=== PATIENT | female | born 1990 | race Caucasian/White ===

== ENCOUNTER 2020-09-03 13:32 | Outpatient (CLI) | payer OTHER ==
--- NOTE | 2020-09-03 16:58 | Ultrasound Report ---
PROCEDURE: OB F/U or Repeat INDICATIONS: F U FAS , SCREENING OUTSIDE/PRIOR DATING DATA: Last menstrual period (LMP): 04/16/2020. LMP-based estimated date of delivery (ZAHIRA): 01/21/2021. First dating scan (date and location): Outside dating scan dated 08/09/2020 is not available for gloria giraldo. Estimated date of delivery (ZAHIRA) from first dating scan: 01/21/2021 based off reported last menstrual p eriod date of 04/16/2020. TECHNIQUE: Real-time scanning was performed of the fetus, with image documentation and biometric measurements. Endovaginal scanning: not performed COMPARISON: Outside examination dated 08/09/2020 is not available for review at time of this study. FINDINGS: General: A single living intrauterine gestation is present. Presentation: Transverse/variable Placenta: Placental position is lateral right, without previa. Amniotic fluid index: 16.4 cm, 70th percentile for gestational age. Largest pocket measures 5.3 cm. heart rate: 153 beats per minute. Maternal cervical canal: 4.8 cm long; normal length is 2.5 cm or more. Maternal ovaries: Within normal limits. biometrics: Biparietal diameter: 4.8 cm, correlating with 20 weeks and 3 days Head circumference: 17.5 cm, correlating with 20 weeks and 0 days Abdominal circumference: 14.7 cm, correlating with 20 weeks and 0 days Femur length: 2.9 cm, correlating with 18 weeks and 6 days Estimated gestational age from initial scan: not applicable. Composite gestational age from present scan: 19 weeks and 6 days Estimated weight and percentile: 297 g which correlates with the 21st percentile based off gest ational age Measurement variability in biometric dating: +/- 10 days from 12-20 weeks gestation, +/- 2 weeks from 20-30 weeks gestation, +/- 3 weeks at 30 weeks gestation or more. Other: The patient was referred for imaging of the cardiac structures and facial structures. face, lips, and orbits appear within normal limits. The ventricular outflow tracts appear within normal limits The four-chamber view is within normal limits. There is a small echogenic focus within the left ventricle (this was described on outside report). The chest, diaphragm, stomach, abdomen, bilateral kidney, and urinary bladder appear unremarkab le. IMPRESSION: Single living intrauterine gestation with an estimated sonographic gestational age of approximately 1 9 weeks and 6 days. Estimated weight of approximately 297 g which correlates with the 21st perc entile based off gestational age. Small echogenic focus within the left ventricle which is a nonspecific finding and can be seen in to 20% of normal fetuses. This may represent the normal papillary muscle or cordae tendineae. Recommend correlation with maternal risk factors and further evaluation as clinically appropriate. Otherwise, u nremarkable sonographic evaluation of the face, lips, orbits, and cardiac structures. Reviewed by: Tato Fisher MD on 09/03/2020 4:57 PM PDT Approved by: Tato Fisher MD on 09/03/2020 4:57 PM PDT Station ID: [id number]
== END 2020-09-03 13:33 | disposition home or self-care (01) ==
LOC: DI 13:32
PROVIDERS: ATTEND Nurse Practitioner Obstetrics & Gynecology
DX: Z36.89 Encounter for other specified antenatal screening (principal)
CPT/HCPCS: 76816

== ENCOUNTER 2020-10-16 09:48 | Outpatient (CLI) | payer OTHER ==
[2020-10-16 11:08] LABS: MEAN CORPUSCULAR HEMOGLOBIN 32.4 pg (27.0-31.0); MEAN CORPUSCULAR HGB CONC 33.3 g/dL (32.0-36.0); MEAN CORPUSCULAR VOLUME 97.3 fL (81.0-99.0); MEAN PLATELET VOLUME 9.6 fL (7.9-10.8); RED BLOOD COUNT 3.7 10^6/uL (4.20-5.40); RED CELL DISTRIBUTION WIDTH 12.4 % (12.0-15.0)
== END 2020-10-16 09:49 | disposition home or self-care (01) ==
LOC: LAB 09:48
PROVIDERS: ATTEND Nurse Practitioner Obstetrics & Gynecology
DX: Z34.90 Encounter for supervision of normal pregnancy, unspecified, unspecified trimester (principal)
CPT/HCPCS: 36415; 82950; 85027

== ENCOUNTER 2020-12-03 08:00 | Outpatient (CLI) | payer OTHER ==
[2020-12-03 20:49] LABS: CANDIDA GROUP DNA NEGATIVE (NEGATIVE); CANDIDA KRUSEI DNA NEGATIVE (NEGATIVE); TRICHOMONAS VAGINALIS DNA NEGATIVE (NEGATIVE)
== END 2020-12-03 23:59 | disposition home or self-care (01) ==
LOC: LAB.R 08:00
PROVIDERS: ATTEND Nurse Practitioner Obstetrics & Gynecology
DX: N76.0 Acute vaginitis (principal)
CPT/HCPCS: 87661; 87801

== ENCOUNTER 2020-12-18 08:00 | Outpatient (CLI) | payer OTHER ==
[2020-12-18 10:35] LABS: HGB - HEMOGLOBIN 12.8 g/dL (12.0-16.0); MEAN CORPUSCULAR HEMOGLOBIN 32.7 pg (27.0-31.0); MEAN CORPUSCULAR HGB CONC 34.1 g/dL (32.0-36.0); MEAN CORPUSCULAR VOLUME 95.7 fL (81.0-99.0); MEAN PLATELET VOLUME 10.1 fL (7.9-10.8); RED BLOOD COUNT 3.92 10^6/uL (4.20-5.40); RED CELL DISTRIBUTION WIDTH 12.4 % (12.0-15.0); WHITE BLOOD COUNT 8.9 x10^3/uL (4.8-10.8)
== END 2020-12-18 23:59 | disposition home or self-care (01) ==
LOC: LAB 08:00
PROVIDERS: ATTEND Nurse Practitioner Obstetrics & Gynecology
DX: R42 Dizziness and giddiness (principal)
CPT/HCPCS: 36415; 85027

== ENCOUNTER 2020-12-25 08:00 | Outpatient (CLI) | payer OTHER | END 2020-12-25 23:59 | disposition home or self-care (01) | LOC: LAB.R 08:00 | PROVIDERS: ATTEND Advanced Practice Midwife | DX: Z34.90 Encounter for supervision of normal pregnancy, unspecified, unspecified trimester (principal); Z36.85 Encounter for antenatal screening for Streptococcus B | CPT/HCPCS: 87797 ==

== ENCOUNTER 2021-01-15 13:45 | Outpatient (CLI) | payer OTHER ==
--- NOTE | 2021-01-15 16:16 | Ultrasound Report ---
PROCEDURE: OB F/U or Repeat INDICATIONS: UTERINE SIZE-DATE DISCREPANCY, THIRD TRIMESTER OUTSIDE/PRIOR DATING DATA: Last menstrual period (LMP): 04/16/2020. LMP-based estimated date of delivery (ZAHIRA): 01/21/2021. First dating scan (date and location): 09/03/2020. Estimated date of delivery (ZAHIRA) from first dating scan: 01/22/2021. TECHNIQUE: Real-time scanning was performed of the fetus, with image documentation and biometric measurements. Endovaginal scanning: Not performed COMPARISON: 09/03/2020. FINDINGS: General: A single living intrauterine gestation is present. Presentation: Vertex Placenta: Placental position is right lateral, without previa. Amniotic fluid index: 13.6 cm, 56th percentile for gestational age. Largest pocket measures 7.2 cm. heart rate: 132 beats per minute. Maternal cervical canal: 5.3 cm long; normal length is 2.5 cm or more. biometrics: Biparietal diameter: 9.4 cm, 38 weeks 1 day Head circumference: 34.3 cm, 39 weeks 4 days Abdominal circumference: 33.6 cm, 37 weeks 4 days Femur length: 6.8 cm, 35 weeks 0 days Estimated gestational age from initial scan: 39 weeks 1 day. Composite gestational age from present scan: 37 weeks 4 days Estimated weight and percentile: 3147 g, 24th percentile Measurement variability in biometric dating: +/- 10 days from 12-20 weeks gestation, +/- 2 weeks from 20-30 weeks gestation, +/- 3 weeks at 30 weeks gestation or more. Other: Redemonstrated intracardiac echogenic focus. Normal appearance of the ventricular outflow tra cts, chest, stomach, kidneys. IMPRESSION: Single living intrauterine fetus with expected interval growth Normal NICA Reviewed by: Earl Underwood MD on 01/15/2021 4:14 PM PST Approved by: Earl Underwood MD on 01/15/2021 4:14 PM PST Station ID: [id number]
== END 2021-01-15 13:46 | disposition home or self-care (01) ==
LOC: DI 13:45
PROVIDERS: ATTEND Nurse Practitioner Obstetrics & Gynecology
DX: O26.843 Uterine size-date discrepancy, third trimester (principal); Z3A.37 37 weeks gestation of pregnancy

== ENCOUNTER 2021-01-29 08:03 | Inpatient (IN) | payer OTHER ==
[2021-01-29] MEDS ORDERED: METHYLERGONOVINE 0.2 MG/ML VIAL IM PRN (09:24)
[2021-01-29] MEDS ORDERED: SODIUM CHLORIDE FLUSH 0.9% 10 ML SYRINGE IVP PRN (09:24)
[2021-01-29] MEDS ORDERED: CARBOPROST TROMETHAMINE 250 MCG/ML AMP IM PRN (09:24)
[2021-01-29] MEDS ORDERED: ONDANSETRON 4 MG/2 ML VIAL IVP PRN ×2 (09:24→21:26)
[2021-01-29] MEDS ORDERED: fentaNYL 100 MCG/2 ML VIAL IVP PRN (09:24)
[2021-01-29] MEDS ORDERED: TRANEXAMIC ACID IN NACL 1,000 MG/100 ML BAG IV PRN (09:24)
[2021-01-29] MEDS ORDERED: OXYTOCIN 10 UNIT/ML VIAL IM PRN (09:24)
[2021-01-29] MEDS ORDERED: miSOPROStoL 200 MCG TABLET BC PRN (09:24)
[2021-01-29] MEDS ORDERED: LIDOCAINE-MPF 1% 30 ML VIAL ID PRN (09:24)
[2021-01-29] MEDS ORDERED: OXYTOCIN/SODIUM CHLORIDE 500 ML IV PRN (09:24)
--- NOTE | 2021-01-29 09:29 | HISTORY & PHYSICAL EXAMINATION ---
Admit History - Visit Reason Visit Reason: Other (Pre-Induction cervical ripening for post dates ) - : 2 Parity: 0 Premature: 0 Ectopic: 0 : 1 Care: positive: Other (WC after transfer of care at 18.0wks) Risk/History: positive: None Complications This : positive: None - Mother's Labs Mother's Blood Type: positive: O Mother's RH: positive: Positive GBS: positive: Group B Step Negative Rubella Status: positive: Non-immune - Other Maternal History Other Maternal History: 30yo at 41.1wks gestation who presents to labor and delivery with desire for pre-induction cervical ripening. Contractions none Reports movement Denies VB/LOF Care- W starting at transfer of care at 18.0wks complications None Dating Criteria Initial U/S: 11.0wks c/w LMP for ZAHIRA 01/21/2021 OB Hx G1: 2018. SAB 6wks G2: current Medications PNV Allergies NKA Medical History None Surgical History 2012- repair to left ear drum Family History Mother- Breast Cancer MGF- HTN and DM Social History Non contributory Labs Initial U/S: 07/01/2020 @ 11.0wks c/w LMP dating O pos/Rubella NON-IMMUNE MMR VZV: immune Genetic testing: CF negative; Serum integrated negative FAS: 08/09/2020 WNL with exception of incomplete views of soft palate and cardiac structures. Anterior placenta, no previa. 3VC. Size c/w dating F/u ultrasound ordered: FAS 09/03/2020 WNL with the exception of small echogenic focus within the left ventricle. Placenta right lateral without previa. face, lips, orbits, and cardiac structures visualized and WNL. Growth at 39.1wks : NICA 13.6; EFW 24%tile. Glucola 121 Influenza: 09/19/2020 TDAP 10/23/2020 GBS at 36.2 wks- NEG HSV: denies self and partner Breast pump Rx provided MOD: Anticipate ; It's a BOY! Adalberto; James; desires epidural *Needs FMLA letter for "bonding time needed" to get more than 6wks leave pp contraception: will consider options. Condoms for now. pap: 07/01/2020-WNL SVE on admit 1.5/25%/-3/post/mod Vertex by digital exam and Tom's EFW by Tom's- 7.5# COVID- collected and sent Assessment 30yo at 41.1wks gestation presents for elective IOL Uterine activity- none Pierce score 2 -requires cervical ripening FHT Cat I Plan Admit to Labor and Delivery- observation status Cervical ripening with Misoprostol q4h Monitoring- Continuous Comfort measures available- whirlpool tub, fentanyl, epidural, NOx Diet/Activity- per pt preference Anticipate Meds/Allgy - Allergies Allergies/Adverse Reactions: Allergies Allergy/AdvReac Type Severity Reaction Status Date / Time No Known Drug Allergies Allergy Verified 01/29/21 09:51 Review of Systems - All Other Systems All Other Systems: reports: Reviewed and negative Physical - Abdominal Exam Contraction Frequency (min/apart): none - Monitoring Strip Review: positive: Category I (periods of Cat II for minimal variability(likely r/t 41.1wk gestation)) - Presentation Presentation: positive: Vertex - Speculum Exam Speculum Exam Performed: positive: No Plan for Labor - Plan For Labor I expect patient to be DC'd or transferred within 96 hours.: Yes
[2021-01-29] MEDS: miSOPROStoL 100 MCG TABLET BC SCH ×3 (09:51→22:19)
[2021-01-29 09:56] LABS: BASOPHILS % (AUTO) 0.2 %; EOSINOPHILS # (AUTO) 0.1 10^3/uL (0.0-0.7); EOSINOPHILS % (AUTO) 1.3 %; HCT - HEMATOCRIT 39.3 % (37.0-47.0); HGB - HEMOGLOBIN 13.4 g/dL (12.0-16.0); LYMPHOCYTES # (AUTO) 1.8 10^3/uL (1.5-3.5); LYMPHOCYTES % (AUTO) 20.9 %; MEAN CORPUSCULAR HEMOGLOBIN 32.8 pg (27.0-31.0); MEAN CORPUSCULAR HGB CONC 34.1 g/dL (32.0-36.0); MEAN CORPUSCULAR VOLUME 96.1 fL (81.0-99.0); MEAN PLATELET VOLUME 11.6 fL (7.9-10.8); MONOCYTES # (AUTO) 0.5 10^3/uL (0.0-1.0); NEUTROPHILS # (AUTO) 6.1 10^3/uL (1.5-6.6); NEUTROPHILS % (AUTO) 71.1 %; PLT - PLATELET COUNT 191 10^3/uL (130-450); RED BLOOD COUNT 4.09 10^6/uL (4.20-5.40); RED CELL DISTRIBUTION WIDTH 12.4 % (12.0-15.0); WHITE BLOOD COUNT 8.5 x10^3/uL (4.8-10.8)
[2021-01-29] MEDS: LACTATED RINGERS 1,000 ML IV SCH ×2 (10:27→21:17)
[2021-01-29] MEDS ORDERED: SODIUM CHLORIDE FLUSH 0.9% 10 ML SYRINGE IVP SCH (17:00)
[2021-01-29] MEDS ORDERED: ZOLPIDEM 5 MG TABLET PO PRN (17:43)
[2021-01-29] MEDS ORDERED: diphenhydrAMINE 25 MG CAPSULE PO PRN (17:43)
--- NOTE | 2021-01-29 18:52 | ANESTHESIA ---
Pre-Anesthesia VS, & Labs - Diagnosis active labor - Procedure labor epidural Vital Signs: Temp Pulse Resp BP Pulse Ox 36.6 C 01/29/21 09:31 Height: 5 ft 7 in Weight (kg): 83.007 kg Body Mass Index: 28.6 BMI Classification: Overweight - Is Patient ?: Yes - Lab Results Current Lab Results: Laboratory Tests 01/29/21 08:30: Blood Type O POSITIVE, Antibody Screen NEGATIVE 01/29/21 08:30: WBC 8.5, RBC 4.09 L, Hgb 13.4, Hct 39.3, MCV 96.1, MCH 32.8 H, MCHC 34.1, RDW 12.4, Plt Count 191, MPV 11.6 H, Neut # (Auto) 6.1, Lymph # (Auto) 1.8, Cascade # (Auto) 0.5, Eos # (Auto) 0.1, Baso # (Auto) 0.0, Absolute Nucleated RBC 0.00, Nucleated RBC % 0.0 Lab results reviewed: Yes Fish Bones: 01/29/21 08:30 Home Medications and Allergies Active Medications Acetaminophen (Acetaminophen 325 Mg Tablet) 650 mg PO Q6H PRN PRN Reason: Pain or Fever Carboprost Tromethamine (Carboprost Tromethamine 250 Mcg/Ml Amp) 250 mcg IM Q15M PRN PRN Reason: Step 4: Hemorrhage protocol Stop: 02/03/21 09:25 Diphenhydramine HCl (Diphenhydramine 25 Mg Capsule) 25 mg PO QPM PRN PRN Reason: Insomnia Fentanyl (Fentanyl 100 Mcg/2 Ml Vial) 50 mcg IVP Q1H PRN PRN Reason: PAIN Last Admin: 01/29/21 18:00 Dose: 50 mcg Documented by: Oxytocin/Sodium Chloride (Pitocin/Sodium Chloride) 500 mls @ 999 mls/hr IV PRN PRN; Protocol PRN Reason: POST- HEMORR PREVENTION Stop: 02/03/21 09:25 Tranexamic Acid (Tranexamic 1,000 Mg/100ml-Nacl) 1,000 mg in 100 mls @ 600 mls/hr IV .ONCE PRN PRN Reason: EBL >1200mL and within 3hr Stop: 02/03/21 09:25 Lactated Ringer's (Lr) 1,000 mls @ 100 mls/hr IV .Q10H [facility] Last Admin: 01/29/21 10:27 Dose: 100 mls/hr Documented by: Lidocaine HCl (Lidocaine-Mpf 1% 30 Ml Vial) 30 ml ID .ONCE PRN PRN Reason: PERINEAL REPAIR Stop: 02/03/21 09:25 Methylergonovine Maleate (Methylergonovine 0.2 Mg/Ml Vial) 0.2 mg IM .ONCE PRN PRN Reason: Step 2: Hemorrhage protocol Stop: 02/03/21 09:25 Misoprostol (Misoprostol 200 Mcg Tablet) 800 mcg BC .ONCE PRN PRN Reason: Step 3: Hemorrhage protocol Stop: 02/03/21 09:25 Misoprostol (Misoprostol 100 Mcg Tablet) 50 mcg BC Q4HR [facility] Last Admin: 01/29/21 14:06 Dose: 50 mcg Documented by: Ondansetron HCl (Ondansetron 4 Mg/2 Ml Vial) 4 mg IVP Q4HR PRN PRN Reason: Nausea / Vomiting Oxytocin (Oxytocin 10 Unit/Ml Vial) 10 unit IM .ONCE PRN PRN Reason: Step one: If no IV access Stop: 02/03/21 09:25 Sodium Chloride (Sodium Chloride Flush 0.9% 10 Ml Syringe) 10 ml IVP 0100,0900,1700 [facility] Sodium Chloride (Sodium Chloride Flush 0.9% 10 Ml Syringe) 10 ml IVP PRN PRN PRN Reason: NEEDED PER PROVIDER ORDERS Zolpidem Tartrate (Zolpidem 5 Mg Tablet) 5 mg PO QPM PRN PRN Reason: Insomnia Allergies/Adverse Reactions: Allergies Allergy/AdvReac Type Severity Reaction Status Date / Time No Known Drug Allergies Allergy Verified 01/29/21 09:51 Anes History & Medical History - Anesthetic History Anesthesia Complications: reports: No previous complications Family history of Anesthesia Complications: Denies Family history of Malignant Hyperthermia: Denies - Medical History Smoking Status: Never smoker - Obstetrical History : 2 Parity: 0 Events: positive: None Complications: positive: None Exam General: Alert, Oriented x3, Cooperative, No acute distress Plan Anesthesia Type: Epidural Consent for Procedure(s) Verified and Reviewed: Yes Code Status: Attempt Resuscitation ASA classification: 2-Mild systemic disease Is this case an emergency?: No
[2021-01-29] MEDS ORDERED: ROPIVACAINE 0.2% 200 MG/100 ML BAG EP ONE (20:19)
[2021-01-29] MEDS ORDERED: BUPIVACAINE 0.25% PF 10 ML VIAL ONE (20:19)
[2021-01-29] MEDS ORDERED: fentaNYL 100 MCG/2 ML VIAL ONE (20:19)
[2021-01-29] MEDS ORDERED: NALBUPHINE 10 MG/ML AMP IVP PRN (21:26)
[2021-01-29] MEDS ORDERED: ROPIVACAINE 0.2% 200 MG/100 ML BAG EP PRN (21:26)
[2021-01-29] MEDS ORDERED: METOCLOPRAMIDE 10 MG/2 ML VIAL IVP PRN (21:26)
[2021-01-29] MEDS ORDERED: ePHEDrine 50 MG/ML VIAL IVP PRN (21:26)
[2021-01-29] MEDS ORDERED: diphenhydrAMINE INJ 50 MG/ML VIAL IVP PRN (21:26)
[2021-01-29] MEDS ORDERED: NALOXONE 0.4 MG/ML VIAL IVP PRN (21:26)
[2021-01-29] MEDS: OXYTOCIN/SODIUM CHLORIDE 500 ML IV SCH (21:57)
[2021-01-30] MEDS: LACTATED RINGERS 1,000 ML IV SCH (02:44)
[2021-01-30] MEDS ORDERED: fentaNYL 100 MCG/2 ML VIAL ONE (05:43)
[2021-01-30] MEDS ORDERED: BUPIVACAINE 0.25% PF 10 ML VIAL ONE (05:43)
[2021-01-30] MEDS ORDERED: ROPIVACAINE 0.2% 200 MG/100 ML BAG EP PRN (05:45)
--- NOTE | 2021-01-30 05:45 | CONSULTATION NOTE ---
Consultation Report: Called to [facility]BP to evaluated labor epidural. Patient having sharp pains in back during contractions, rating 8/10. Patient rates anterior abdomen pain at 2/10. Epidural site checked, still at 13 cm at skin. Patient legs numb bilaterally. Fentanyl 100 mcg and Bupivacaine 0.25% 4mL bolused. Discussed with patient about options including replacing catheter if bolus ineffective. Patient declines replacement as she is having anterior abdomen relief. Discussed plan of care with RN, patient and significant other at bedside
[2021-01-30] MEDS: OXYTOCIN/SODIUM CHLORIDE 500 ML IV SCH (06:53)
[2021-01-30] MEDS ORDERED: MEASLES,MUMPS & RUBELLA VACC 0.5 ML VIAL SUBQ ONE (09:13)
[2021-01-30] MEDS ORDERED: HYDROCORTISONE 1% CREAM 28 GM TUBE PR PRN (09:13)
[2021-01-30] MEDS ORDERED: WITCH HAZEL/GLYCERIN 1 PAD TOP PRN (09:13)
--- NOTE | 2021-01-30 09:31 | DELIVERY NOTE ---
Delivery Note - Labor Labor: positive: Augmented by oxytocin - Delivery Method Delivery Method: positive: Spontaneous vaginal delivery - Presentation Presentation: positive: Vertex, Compound, ALEKS - right occiput anterior - Nuchal Cord Nuchal Cord: positive: None - Anesthetic Anesthetic Type: - Amniotic Fluid Description Amniotic Fluid Description: positive: Clear - Laceration Laceration: positive: 2nd degree, Labial, Periurethral - Suture Suture Type: positive: Vicryl Suture Size: positive: 2-0, 3-0 - Delivery Outcome Delivery Outcome: positive: Livebirth - [place]: positive: Placed in direct skin contact with mother, Stimulated, [place] used [place] sex: positive: Male : 8 : 9 - Cord Cord: positive: 3 vessels - Placenta Placenta: positive: Intact, Spontaneous - Estimated Blood Loss Estimated Blood Loss (in cc): 200 - Post Delivery Events Post Delivery Events: positive: No post delivery events - Delivery Comments (Free Text/Narrative) Delivery Comments (Free Text/Narrative): Note: Labor: This 30 year old, , @41.1wks gestation by 11.0 week Ultrasound, confirmed by LMP, presented on 01/29/2021 for Induction of Labor for post-dates . Cervix was FT/25/-3 and vertex. FHR pattern demonstrated 130 baseline in a Category I pattern, periods of minimal variability occurred intermittently throughout labor. Miso x2 administered and Pitocin used for augmentation. Normal labor course. Epidural placed upon maternal request. She progressed to complete at 0557 and began to push. AROM occurred @ 0600 and amount and color of fluid were noted to be moderate and clear. : Normal of a 3300gm male , named Kelvin on 01/30/2021 @ 0803. Nuchal not present but a compound right hand by the face was noted. The was placed on maternal abdomen, stimulated, dried and placed skin to skin. Apgars 8 at one minute and 9 at five minutes. The umbilical cord was allowed to stop pulsating at which time it was doubly clamped by CNM and cut by FOB. Pitocin administered via IV for hemostasis. Fundal massage and gentle cord traction applied for active third stage management. Cord blood was obtained. Placenta delivered spontaneously and intact at 0815. Three vessel cord. EBL 200mL. Fourth Stage: Uterine fundus firm and without excessive bleeding. The perineum, vagina, and cervix were inspected and found to have sustained a second degree perineal tear with extension into left labia. Perineal laceration was sutured with a 2-0 vicryl and 3-0 vicryl, and labial was sutured with a 3-0 vicryl. The repair was performed under sterile conditions in standard fashion. Vaginal examination following repair was done. Tissues well approximated. initiated. Family bonding well. Both mother and baby are in stable condition.
[2021-01-30] MEDS: ACETAMINOPHEN 325 MG TABLET PO PRN ×2 (10:24→16:07)
[2021-01-30] MEDS: DOCUSATE SODIUM 100 MG CAPSULE PO SCH ×2 (10:24→21:53)
[2021-01-30] MEDS: IBUPROFEN 600 MG TABLET PO SCH ×3 (10:24→21:53)
[2021-01-31] MEDS: ACETAMINOPHEN 325 MG TABLET PO PRN ×2 (04:09→10:19)
[2021-01-31] MEDS: IBUPROFEN 600 MG TABLET PO SCH ×2 (04:10→10:19)
[2021-01-31 07:28] VITALS: BP 113/64
[2021-01-31] MEDS: DOCUSATE SODIUM 100 MG CAPSULE PO SCH (10:19)
--- NOTE | 2021-01-31 10:47 | PROVIDER PROGRESS NOTE ---
Subjective - Prog Note Date Prog Note Date: 01/31/21 Prog Note Time: 10:40 - Subjective Pt reports feeling: Improved Subjective: S: KALYN is resting in bed on her side, reporting that her back is a little sore, but overall feeling very well. FOB is resting on the couch, holding baby. She reports is easier at some feeds than others, but that it is improving. Her bleeding is light, without ever soaking a pad, and hasn't changed her pad in 3 hours. She reports it as bright red. Uterine contractions are mild, and she reports PO pain meds as effective for these. Desires discharge home today O: Lochia rubra Fundus firm A: 30yo s/p on pp day 1 improving Normal recovery P: Continue with routine care Evaluate for discharge home this afternoon, or tomorrow morning per Peds Objective - Vital Signs/Intake & Output Vital Signs: Vital Signs x48h Temp Pulse Resp BP Pulse Ox 01/31/21 07:28 36.6 C 70 17 113/64 99 01/31/21 03:40 36.7 C 81 16 112/62 100 Intake & Output: Intake & Output 01/28/21 01/29/21 01/30/21 01/31/21 23:59 23:59 23:59 23:59 Intake Total 1000 2401.300 420 Output Total 1900 Balance 1000 501.300 420 - Lab Results Fish Bones: 01/29/21 08:30
--- NOTE | 2021-01-31 10:53 | Discharge Plan ---
Discharge Plan Problem Reviewed?: Yes Disposition: Home, Self Care Condition: Good No Smoking: If you smoke, Please STOP! Call for help. Follow-up with: Chely Perez ARNP [Provider Admit Priv/Credential] -
--- NOTE | 2021-01-31 10:53 | DISCHARGE SUMMARY ---
Discharge Summary Condition at Discharge: Good - HPI History of Present Illness: Admit Date 01/29/2021 Discharge Date 01/31/2021 Diagnosis on Admission: 1. A 30yo at 41.1 week intrauterine Diagnosis on Discharge 1. A 30yo s/p spontaneous vaginal delivery on 01/30/2021 2. Normal recovery Brief History: She is a patient at [facility] who presented on 01/29/2021 for induction of labor for post-dates . Her cervix was 1.5cm dilated, 25%effaced, and -3 station, and her cervix was ripened with Misoprostol x2. She as augmented with pitocin and spontaneously delivered a viable male named Adalberto. Apgars were 8 and 9- and 1 and 5 minutes respectively. EBL 200mL. The patient has a 2nd degree laceration that was repaired with 2-0 vicryl and 3-0 vicryl in usual fashion under sterile conditions. She has been doing well in her course. She is ambulating and tolerating a regular diet. She is urinating without difficulty and her lochia is normal. Her pain is well controlled with oral medications. She will be discharged home today on day #1 without need for prescriptions. She intends to follow up with Midwifery at [facility] in 1.5, and 6 weeks for routine visit. She has been given precautions to call if she has any worsening fevers, chills, abdominal pain, increased bleeding or foul smelling vaginal lochia. - ALLERGIES Allergies/Adverse Reactions: Allergies Allergy/AdvReac Type Severity Reaction Status Date / Time No Known Drug Allergies Allergy Verified 01/29/21 09:51 - MEDICATIONS Home Medications: Ambulatory Orders Medication Instructions Recorded Confirmed Pnv No.121/Iron/Folic Acid 1 tab PO DAILY 01/30/21 01/30/21 [ Multivitamin Tablet] - LABS Result Diagrams: 01/29/21 08:30
--- NOTE | 2021-01-31 16:35 | Labor Flowsheet ---
Labor Flowsheet Datetime Report Generated by CPN: 01/31/2021 16:34 Datetime: 01/31/2021 07:20 VITAL SIGNS NBP Sys/Brit/Mean (mmHg): 113 : 64 : 73 Pulse: 70 Datetime: 01/30/2021 12:34 SpO2 (%): 98 Datetime: 01/30/2021 10:03 Stage of : Recovery Respirations: 16 Temperature (C): 37.3 Temperature Route: Axillary Datetime: 01/30/2021 08:15 Pain Type: Cramping Datetime: 01/30/2021 08:11 LaborFlag: Labor Datetime: 01/30/2021 08:03 ASSESSMENT A Monitor Mode: Telemetry FHR Baseline Changes: No Baseline Change Accelerations: Prolonged Decelerations: Late Category: Category II Comments: FHR 130-170s in between pushing. baby born at 0803 Datetime: 01/30/2021 07:45 UTERINE ACTIVITY Monitor Mode: External Frequency (min): 3-5 Quality: Strong Duration (sec): 40-70 Pattern: Normal: <= 5 Contractions in 10 Minutes Resting Tone (Palpate): Relaxed Variability: Moderate 6-25 bpm Datetime: 01/30/2021 07:30 FHR Baseline Rate : 140 Oxygen Method: Room Air Pushing Position: Pushing with Contractions Pushing Progress: Descent with Pushing Stage 2 Comments: provider has been in room since pushing began Datetime: 01/30/2021 07:22 MEDICATIONS Pitocin (milliunits): Increased to @ 4 Datetime: 01/30/2021 06:51 Medication Comments: per verbal order from CNM Datetime: 01/30/2021 06:50 Pitocin Checklist: At Least 1 Acceleration of 15 bpm x 15 Seconds in 30 Minutes or Adequate Variabi lity; No More than 1 Late Deceleration Occurred in Past 30 Minutes; No More than 2 Variable Decelerat ions > 60 Seconds in Duration and decreasing >60 bpm in 30 minutes; No More than 5 Uterine Contractio ns in 10 Minutes for any 20 Minute Interval; Uterus Palpates Soft between Contractions Datetime: 01/30/2021 06:22 Hygiene: Octavia Care; Underpad Changed Datetime: 01/30/2021 06:09 PAIN Pain Scale: 4 Datetime: 01/30/2021 06:02 VAGINAL EXAM Dilatation (cm): 10.0 Effacement (%): 100 Station: 0 Exam by: H Chris CNM Datetime: 01/30/2021 06:00 Membrane Status: Ruptured Membranes Rupture Method: Artificial Amniotic Fluid Color: Clear Amniotic Fluid Amount: Large Datetime: 01/30/2021 05:57 STAGE 2 Pushing: Coached on Pushing Datetime: 01/30/2021 05:56 Vaginal Bleeding: Normal Show Datetime: 01/30/2021 05:52 Provider Reviewed Strip: Yes COMMUNICATION Communication: Provider at Bedside Notification Reason: Status Update; Pain Datetime: 01/30/2021 05:38 Pain Coping: Breathing Through Contractions Datetime: 01/30/2021 05:34 Epidural Procedure Other: Redose Datetime: 01/30/2021 05:33 Pain Location: Back Datetime: 01/30/2021 05:30 Anesthesia Comments: CAR DROPPER assessing site Datetime: 01/30/2021 05:02 Pain Presence: Intermittent Pain Relief Measures: Comfort Measures Patient Position/Activity: Left Tilt; Semi-Fowlers Comfort Measures: Breathing/Relaxation Datetime: 01/30/2021 04:50 Pain Assessment Comments: repositioning Datetime: 01/30/2021 02:48 PATIENT CARE IV/Blood Work: New IV Bag Hung Datetime: 01/30/2021 02:11 Monitor Interventions for UA: [place] Adjusted Datetime: 01/30/2021 01:29 Strip Reviewed by: [place] CN Communication Comments: CNM on unit, going to sleep room, no orders recieved Datetime: 01/30/2021 01:14 TEACHING Instructional Method: Verbal; Verbalized Understanding Labor/Induction: Interventions Datetime: 01/30/2021 01:01 Provider Notified (Name): H. [place], CNM Datetime: 01/30/2021 00:49 Patient Care Comments: bolus complete, returned to maintenance rate Datetime: 01/30/2021 00:01 Actions for Decelerations: Pitocin Off; IV Bolus Datetime: 01/30/2021 00:00 Cervix, Position: Midposition Datetime: 01/29/2021 22:07 Vaginal Exam Comments: 1 small spot of bleeding to chux, no active bleeding noted Datetime: 01/29/2021 21:46 Plan of Care: Plan of Care Discussed Medications: Pitocin Datetime: 01/29/2021 20:51 Cervix, Consistency: Soft Datetime: 01/29/2021 20:48 I/O Interventions: Viveros Cath Inserted Datetime: 01/29/2021 20:18 Epidural Procedure: Test Dose Datetime: 01/29/2021 20:10 ANESTHESIA Epidural Positioning: Sitting Datetime: 01/29/2021 19:20 MATERNAL ASSESSMENT Level of Consciousness: Alert DTR's/Clonus: DTRs 2+; No Clonus Headache: Denies Breath Sounds, Left: Clear and Equal Breath Sounds, Right: Clear and Equal Nausea/Vomiting: Present RUQ Epigastric Pain: Denies Datetime: 01/29/2021 19:10 Unit Routine: Monitoring; Safety/Fall Risk Prevention Pain Management: IV Narcotics; Epidural; PRN Medications; Pain Scale/Goals; Comfort Measures Datetime: 01/29/2021 17:57 Analgesics/Sedatives: Fentanyl (mcg) @ 50mcg IVP given Datetime: 01/29/2021 17:00 Contraction Comments: pt. states she feels them about Q2min. Datetime: 01/29/2021 14:53 Pain Goal: 5 Datetime: 01/29/2021 11:53 Monitor Interventions for FHR: Ultrasound Adjusted Datetime: 01/29/2021 09:52 Cervical Ripening Agents: Cyt[facility]
== END 2021-01-31 16:15 | disposition home or self-care (01) | DRG 807 ==
LOC: WFO 08:03 → FBP 08:52 → WFO 09:23 → FBP 09:24 → OBSVTOIN 20:00
PROVIDERS: ADMIT Advanced Practice Midwife; ATTEND Advanced Practice Midwife
PROC: 10907ZC Drainage of Amniotic Fluid, Therapeutic from Products of Conception, Via Natural or Artificial Opening (ICD-10-PCS; principal; 2021-01-29)
PROC: 10E0XZZ Delivery of Products of Conception, External Approach (ICD-10-PCS; 2021-01-29)
PROC: 0KQM0ZZ Repair Perineum Muscle, Open Approach (ICD-10-PCS; 2021-01-29)
DX: O48.0 Post-term pregnancy (principal); Z37.0 Single live birth; Z3A.41 41 weeks gestation of pregnancy; O70.1 Second degree perineal laceration during delivery; O32.6XX0 Maternal care for compound presentation, not applicable or unspecified; Z20.822 Contact with and (suspected) exposure to COVID-19
CPT/HCPCS: 85025; 86850; 86900; 86901; 87635; 96374; A9270; G0378; J7120

== ENCOUNTER 2022-07-21 15:49 | Outpatient (CLI) | payer OTHER ==
[2022-07-21 16:12] LABS: BASOPHILS % (AUTO) 0.3 %; EOSINOPHILS # (AUTO) 0.2 10^3/uL (0.0-0.7); EOSINOPHILS % (AUTO) 3.3 %; HCT - HEMATOCRIT 40.6 % (37.0-47.0); HGB - HEMOGLOBIN 14.1 g/dL (12.0-16.0); LYMPHOCYTES # (AUTO) 2.4 10^3/uL (1.5-3.5); LYMPHOCYTES % (AUTO) 36.8 %; MEAN CORPUSCULAR HEMOGLOBIN 31.7 pg (27.0-31.0); MEAN CORPUSCULAR HGB CONC 34.7 g/dL (32.0-36.0); MEAN CORPUSCULAR VOLUME 91.2 fL (81.0-99.0); MEAN PLATELET VOLUME 9.4 fL (7.9-10.8); MONOCYTES # (AUTO) 0.4 10^3/uL (0.0-1.0); MONOCYTES % (AUTO) 6.4 %; NEUTROPHILS # (AUTO) 3.5 10^3/uL (1.5-6.6); PLT - PLATELET COUNT 266 10^3/uL (130-450); RED BLOOD COUNT 4.45 10^6/uL (4.20-5.40); RED CELL DISTRIBUTION WIDTH 11.7 % (12.0-15.0); WHITE BLOOD COUNT 6.6 x10^3/uL (4.8-10.8)
[2022-07-21 16:41] LABS: T4 (THYROXINE) 5.89 ug/dL (6.09-12.23)
[2022-07-21 16:46] LABS: THYROID STIMULATING HORMONE 1.99 uIU/mL (0.34-5.60)
[2022-07-21 16:52] LABS: FERRITIN 61.9 ng/mL (11.0-306.8)
[2022-07-21 17:13] LABS: FOLLICLE STIMULATING HORMONE 4.07 mIU/mL
[2022-07-21 17:14] LABS: LUTEINIZING HORMONE 3.15 mIU/mL
[2022-07-22 05:10] LABS: ESTRADIOL 33.4 pg/mL (.); PROGESTERONE 0.4 ng/mL (.)
== END 2022-07-21 15:50 | disposition home or self-care (01) ==
LOC: LAB 15:49
PROVIDERS: ATTEND Nurse Practitioner
DX: Z13.29 Encounter for screening for other suspected endocrine disorder (principal); Z86.2 Personal history of diseases of the blood and blood-forming organs and certain disorders involving the immune mechanism; Z13.21 Encounter for screening for nutritional disorder
CPT/HCPCS: 36415; 82306; 82627; 82670; 82728; 83001; 83002; 84144; 84436; 84443; 85025

== ENCOUNTER 2022-11-03 15:24 | Outpatient (CLI) | payer OTHER ==
[2022-11-03 16:36] LABS: ALBUMIN 4.2 g/dL (3.2-5.5); ALBUMIN/GLOBULIN RATIO 1.2 (1.0-2.2); BILIRUBIN,TOTAL 0.5 mg/dL (0.2-1.0); CALCIUM 9.2 mg/dL (8.5-10.3); CREATININE 0.6 mg/dL (0.4-1.0); POTASSIUM 3.5 mmol/L (3.5-5.0); TOTAL PROTEIN 7.6 g/dL (6.7-8.2)
--- NOTE | 2022-11-03 16:38 | Ultrasound Report ---
PROCEDURE: Pelvic w/Transvaginal INDICATIONS: PELVIC PAIN TECHNIQUE: Real-time scanning was performed of the pelvic organs, with image documentation. Additional endovagi nal scanning was necessary due to incomplete visualization of the adnexal and endometrial structures by transabdominal scanning. COMPARISON: None. FINDINGS: Uterus: Uterus is anteverted and normal in size at 8.4 x 4.6 x 6 cm. The myometrium is homogeneous. The endometrium measures 3-4 mm in combined thickness. Fluid is seen within the endocervical canal . Ovaries: The right ovary measures 5.5 x 3.5 x 4 cm, with a calculated ovarian volume of 39.6 cc. The right ovary demonstrates a heterogeneous mass with internal vascularity that measures 3.4 x 2.8 x 3 cm. The left ovary measures 4.3 x 2.6 x 2.4 cm, with a calculated ovarian volume of 14.1 cc. Less than 12 follicles can be seen in each ovary. No adnexal masses are seen. Other: A mild amount of free pelvic fluid can be seen. IMPRESSION: There is a 3.4 cm heterogeneous right ovarian mass seen. If clinically appropriate, ple ase consider a short-term follow-up ultrasound in 6 weeks to ensure resolution/improvement. If this lesion does not significantly improve on short-term follow-up ultrasound, then a dedicated gynecologi bill protocol MRI (without and with contrast) would be recommended (assuming that there is no contrai ndication). A small amount of fluid is seen, which may be physiologic. Reviewed by: Nehemiah Chanel MD on 11/03/2022 3:37 PM [facility] Approved by: Nehemiah Chanel MD on 11/03/2022 3:37 PM [facility] Station ID: [id number]
== END 2022-11-03 15:25 | disposition home or self-care (01) ==
LOC: DI 15:24
PROVIDERS: ATTEND Nurse Practitioner
DX: N83.9 Noninflammatory disorder of ovary, fallopian tube and broad ligament, unspecified (principal); Z86.2 Personal history of diseases of the blood and blood-forming organs and certain disorders involving the immune mechanism; N93.9 Abnormal uterine and vaginal bleeding, unspecified; R10.2 Pelvic and perineal pain
CPT/HCPCS: 36415; 80053; 81599; 85730; 86038

== ENCOUNTER 2022-11-06 14:36 | Day surgery (SDC) | payer OTHER ==
[2022-11-06 15:54] LABS: BASOPHILS % (AUTO) 0.2 %; EOSINOPHILS % (AUTO) 0.2 %; HCT - HEMATOCRIT 37.6 % (37.0-47.0); HGB - HEMOGLOBIN 12.5 g/dL (12.0-16.0); LYMPHOCYTES # (AUTO) 1.4 10^3/uL (1.5-3.5); LYMPHOCYTES % (AUTO) 12.2 %; MEAN CORPUSCULAR HEMOGLOBIN 30.5 pg (27.0-31.0); MEAN CORPUSCULAR HGB CONC 33.2 g/dL (32.0-36.0); MEAN CORPUSCULAR VOLUME 91.7 fL (81.0-99.0); MEAN PLATELET VOLUME 9.3 fL (7.9-10.8); MONOCYTES # (AUTO) 0.5 10^3/uL (0.0-1.0); NEUTROPHILS # (AUTO) 9.5 10^3/uL (1.5-6.6); PLT - PLATELET COUNT 292 10^3/uL (130-450); RED CELL DISTRIBUTION WIDTH 11.9 % (12.0-15.0); WHITE BLOOD COUNT 11.4 x10^3/uL (4.8-10.8)
[2022-11-06 16:04] LABS: ALBUMIN 4.5 g/dL (3.2-5.5); ALBUMIN/GLOBULIN RATIO 1.6 (1.0-2.2); BILIRUBIN,TOTAL 0.9 mg/dL (0.2-1.0); CALCIUM 8.9 mg/dL (8.5-10.3); CREATININE 0.7 mg/dL (0.4-1.0); POTASSIUM 3.9 mmol/L (3.5-5.0); TOTAL PROTEIN 7.4 g/dL (6.7-8.2)
[2022-11-06] MEDS ORDERED: oxyCODONE 5 MG TABLET PO STA (17:21)
--- NOTE | 2022-11-06 17:23 | ED Physician Documentation ---
History of Present Illness - Stated complaint Stated Complaint: STOMACH PX CNT WALK - Chief complaint Chief Complaint: Abd Pain - Additonal information Additional information: 31-year-old female presents to the emergency department for evaluation of severe right lower quadrant abdominal pain. She reports that she has been having vaginal bleeding now for about 3weeks. She did see her provider through the OB clinic who had ordered an ultrasound on the . This does show a 3 x 5 cm right ovarian mass. Patient reports that over the last few days the pain is gotten worse. No fevers no vomiting but the pain limits her ability to stand upright. No diarrhea or urinary symptoms. She has had no syncope though she has been near syncopal. Denies chest pain or shortness of air. Patient reports that she missed her menstrual cycle on 16 September and checked a urine which was negative. About a week later she began to have some spotting and bleeding that stopped. However she began having vaginal bleeding about 21 days ago Review of Systems Constitutional: denies: Fever, Chills Cardiac: denies: Chest pain / pressure, Palpitations Respiratory: denies: Dyspnea, Cough GI: reports: Abdominal Pain. denies: Nausea, Vomiting, Constipation, Diarrhea : denies: Dysuria, Frequency Skin: denies: Rash, Lesions PD PAST MEDICAL HISTORY - Present Medications Home Medications: Ambulatory Orders Medication Instructions Recorded Confirmed Pnv No.121/Iron/Folic Acid 1 tab PO DAILY 01/30/21 01/30/21 [ Multivitamin Tablet] - Allergies Allergies/Adverse Reactions: Allergies Allergy/AdvReac Type Severity Reaction Status Date / Time No Known Drug Allergies Allergy Verified 11/06/22 15:16 - Social History Smoking Status: Never smoker PD ED PE NORMAL - General General: Alert and oriented X 3, No acute distress, Well developed/nourished - HEENT HEENT: Atraumatic, Moist mucous membranes - Neck Neck: Supple, no meningeal sign, No adenopathy - Cardiac Cardiac: RRR, No murmur - Respiratory Respiratory: No respiratory distress - Abdomen Abdomen: Normal bowel sounds, Soft. No: Non tender (Tender in the midline and right lower quadrant of the abdomen. No guarding or rebound. However patient is unable to stand upright due to pain) - Back Back: No CVA TTP, No spinal TTP - Derm Derm: Normal color, Warm and dry - Extremities Extremities: No deformity, No tenderness to palpate, Normal ROM s pain - Neuro Neuro: Alert and oriented X 3, soil analyst 2-12 intact Eye Opening: Spontaneous Motor: Obeys Commands Verbal: Oriented GCS Score: 15 Results - Vitals Vitals: Vital Signs - 24 hr 11/06/22 11/06/22 11/06/22 15:12 17:15 19:41 Temperature 37.2 C 37.2 C Heart Rate 72 94 94 Respiratory 16 18 18 Rate Blood Pressure 110/65 109/76 109/76 O2 Saturation 99 99 99 Oxygen O2 Source Room air - Labs Labs: Laboratory Tests 11/06/22 11/06/22 11/06/22 15:46 15:46 15:46 WBC 11.4 H RBC 4.10 L Hgb 12.5 Hct 37.6 MCV 91.7 MCH 30.5 MCHC 33.2 RDW 11.9 L Plt Count 292 MPV 9.3 Neut # (Auto) 9.5 H Lymph # (Auto) 1.4 L [place] # (Auto) 0.5 Eos # (Auto) 0.0 Baso # (Auto) 0.0 Absolute Nucleated RBC 0.00 Nucleated RBC % 0.0 Sodium 137 Potassium 3.9 Chloride 105 Carbon Dioxide 24 Anion Gap 8.0 BUN 10 Creatinine 0.7 Estimated GFR (MDRD) 98 Glucose 110 H Calcium 8.9 Total Bilirubin 0.9 AST 17 ALT 14 Alkaline Phosphatase 41 L Total Protein 7.4 Albumin 4.5 Globulin 2.9 Albumin/Globulin Ratio 1.6 Lipase 29 HCG, Quant 4806.00 Urine Color Urine Clarity Urine pH Ur Specific [place] Urine Protein Urine Glucose (UA) Urine Ketones Urine Occult Blood Urine Nitrite Urine Bilirubin Urine Urobilinogen Ur Leukocyte Esterase Urine RBC Urine WBC Ur Squamous Epith Cells Urine Bacteria Urine Mucus Ur Microscopic Review Urine Culture Comments Urine HCG, Qual Blood Type Antibody Screen Crossmatch IS Only 11/06/22 11/06/22 11/06/22 17:24 17:24 18:02 WBC RBC Hgb Hct MCV MCH MCHC RDW Plt Count MPV Neut # (Auto) Lymph # (Auto) [place] # (Auto) Eos # (Auto) Baso # (Auto) Absolute Nucleated RBC Nucleated RBC % Sodium Potassium Chloride Carbon Dioxide Anion Gap BUN Creatinine Estimated GFR (MDRD) Glucose Calcium Total Bilirubin AST ALT Alkaline Phosphatase Total Protein Albumin Globulin Albumin/Globulin Ratio Lipase HCG, Quant Urine Color YELLOW Urine Clarity HAZY Urine pH 6.0 Ur Specific [place] >=1.030 H Urine Protein NEGATIVE Urine Glucose (UA) NEGATIVE Urine Ketones >=80 H Urine Occult Blood MODERATE H Urine Nitrite NEGATIVE Urine Bilirubin NEGATIVE Urine Urobilinogen 0.2 (NORMAL) Ur Leukocyte Esterase NEGATIVE Urine RBC 6-10 H Urine WBC 0-3 Ur Squamous Epith Cells FEW Squamous Urine Bacteria Few Urine Mucus Marked Strands Ur Microscopic Review INDICATED Urine Culture Comments NOT INDICATED Urine HCG, Qual POSITIVE Blood Type O POSITIVE Antibody Screen NEGATIVE Crossmatch IS Only See Detail - Rads (name of study) OB Pelvic US Radiology: See rad report, Other (Per robotics technologist there is hemoperitoneum. No IUP. No further findings to suggest the large mass on the right ovary.) PD Medical Decision Making - ED course Complexity details: reviewed results, re-evaluated patient, d/w patient, d/w automotive service consultant (Nubia) ED course: 31-year-old female presents emergency department for evaluation of worsening right lower quadrant and pelvic pain. She reports that she has been having vaginal bleeding for 1 month. OB provider had an outpatient ultrasound completed on the which showed a 5 x 3 cm right ovarian mass. But with worsening symptoms the patient presented today to the ER. She reports that in early September she was late for her menstrual cycle took a home that was negative then began having vaginal spotting. Today the hCG and her urine is positive and her quant is 4800. My concern is that this patient could have an ectopic thus I am ordering an ultrasound. Patient is hemodynamically stable without tachycardia or hypotension. 2 large-bore IVs have been placed. Her hemoglobin is stable at 12.5. Last hemoglobin in early July 2022 was 14. Her electrolytes were without acute findings. Patient last ate at about 5 PM. 1849: Patient has a Hcg quant of 4800. agricultural research technologist at the bedside does not have findings of a right ovarian mass anymore. However she does have concern for hemoperitoneum. My suspicion is that this patient has a ruptured ectopic and I have called Dr. Delacruz but she will be coming in to further evaluate the patient but likely will need OR. 1924: Dr. Delacruz is at bedside. Will be taking pt ot OR for further evaluation of likely ruptured ectopic Departure - Departure Disposition: ED Transfer to [facility] Clinical Impression: Ruptured ectopic
[2022-11-06 17:34] LABS: BILIRUBIN,URINE NEGATIVE (NEGATIVE); GLUCOSE, URINE (UA) NEGATIVE (NEGATIVE); KETONES,URINE (UA) >=80 mg/dL (NEGATIVE); LEUKOCYTE ESTERASE, URINE NEGATIVE (NEGATIVE); NITRITE,URINE NEGATIVE (NEGATIVE); OCCULT BLOOD,URINE MODERATE (NEGATIVE); PROTEIN,URINE NEGATIVE (NEGATIVE); UROBILINOGEN,URINE 0.2 (NORMAL) E.U./dL (NORMAL)
[2022-11-06 17:37] LABS: CLARITY,URINE HAZY (CLEAR); HCG UR QUAL POSITIVE
[2022-11-06 17:48] LABS: WBC,URINE 0-3 /HPF (0-5)
[2022-11-06 17:49] LABS: BACTERIA,URINE Few /HPF (None Seen); MUCUS,URINE Marked Strands; SQUAMOUS EPITHELIAL CELL,UR FEW Squamous (<= Few)
[2022-11-06] MEDS ORDERED: SODIUM CHLORIDE 0.9% 1,000 ML IV STA (18:56)
--- NOTE | 2022-11-06 19:38 | SURGERY HX AND PHYSICAL(T) ---
Surgical History & Physical - Chief Complaint/HPI Chief Complaint: Abdominal pain History of Present Illness: 31yo with increasingly worsening pelvic pain. She has been having irregular bleeding and pelvic pain for past few weeks. She reports a negative test in September. Today she had severe pain and presented to ED. Pain worse on right more than left. HCG 4800. No IUP. US report pending but hemoperitoneum noted on US. Discussed with patient, diagnosis of ectopic , ruptured. Indications for emergent laparoscopic surgery. Informed consent obtained. - PMH/PSH/Social Hx Neurological History: None Eyes, Ears, Nose, Throat: None Cardiovascular: None Respiratory: None Skin: None Endocrine/Autoimmune: None Gastrointestinal: None DIRECTOR OF DISTRICT OFFICE: Ectopic (current), Other Is Patient ?: Yes (Ectopic currently) Urinary: None Musculoskeletal: None Blood Disorders: None Psychiatric: None PMH Other: R ovarian mass Eyes Ears Nose Throat (EENT): Tonsil/Adenoidectomy Smoking Status: Never smoker Does the pt drink ETOH?: No Does the pt have substance abuse?: No - Family Hx Family Hx: Unremarkable - Home Meds and Allergies Home Medications: Pnv No.121/Iron/Folic Acid [ Multivitamin Tablet] 1 tab PO DAILY 01/30/21 Allergies/Adverse Reactions: Allergies Allergy/AdvReac Type Severity Reaction Status Date / Time No Known Drug Allergies Allergy Verified 11/06/22 15:16 - Vital Signs Heart Rate: 94 Blood Pressure: 109/76 Temperature: 99.0 F Respiratory Rate: 18 O2 Saturation: 99 Weight (kg): 70.307 kg Height: 5 ft 7 in - Physical Exam General Appearance: positive: Mild distress Eyes Bilatera: positive: EOMI Respiratory: positive: No respiratory distress Abdomen: positive: Tenderness (R>L) Skin: positive: Color nml Extremities: positive: Non-tender Neurologic/Psychiatric: positive: Oriented x3 - Patient Review Patient Review: Problems were reviewed with the patient during this visit. Medications were reviewed with the patient during this visit. Allergies were reviewed this patient during this visit. Pertinent Tests Reviewed: All pertitent test for this patient were reviewed. - Assessment & Plan Assessment and Plan: 31yo with ruptured right sided ectopic - Informed consent obtained for emergent operative laparoscopy, possible salpingectomy, possible oophorectomy - To OR - Plan for observation overnight
--- NOTE | 2022-11-06 19:42 | Ultrasound Report ---
PROCEDURE: OB First Trimester w/TV INDICATIONS: Rt ovarian mass questionable torsion ? ectopic OUTSIDE/PRIOR DATING DATA: Last menstrual period (LMP): Unknown. LMP-based estimated date of delivery (ZAHIRA): Unknown. First dating scan (date and location): 11/06/2022. Estimated date of delivery (ZAHIRA) from first dating scan: N/A TECHNIQUE: Real-time scanning was performed of the fetus and maternal pelvic organs, with image documentation. E xamination was ordered as a transabdominal and transvaginal examination. However, patient unable to t olerate transvaginal examination. Only a transabdominal examination was obtained. COMPARISON: None FINDINGS: There is extensive echogenic material in the cul-de-sac consistent with hemoperitoneum. Th is echogenic material measures approximately 8.7 x 2.3 cm. There is moderate free fluid around the right adnexa. There is a probable right ovarian corpus luteum measuring approximately 1.9 x 1.8 cm. There is what appears to be a solid focus in the right adnexa measuring 4.5 x 3.3 cm with peripheral vascularity. Findings are suspicious for a right adnexal ectopic . IMPRESSION: 1. No intrauterine is identified. 2. Findings are highly consistent with hemorrhagic fluid in the pelvis, possibly suggesting ruptured ectopic. 3. There is a probable right adnexal ectopic noted. Comment: Preliminary report was given to the ER physician by the record press supervisor at the time of study com pletion. Reviewed by: Hang Tejada MD on 11/06/2022 7:40 PM PST Approved by: Hang Tejada MD on 11/06/2022 7:40 PM PST Station ID: [id number]
[2022-11-06] MEDS ORDERED: BUPIVACAINE 0.5% PF 30 ML VIAL ONE (19:51)
[2022-11-06] MEDS ORDERED: LIDOCAINE MPF 2%-EPI 1:200000 20 ML VIAL ONE (19:51)
[2022-11-06] MEDS ORDERED: SUCCINYLCHOLINE 200 MG/10 ML VIAL ONE (19:57)
[2022-11-06] MEDS ORDERED: MIDAZOLAM 2 MG/2 ML VIAL ONE (19:59)
[2022-11-06] MEDS ORDERED: fentaNYL 100 MCG/2 ML VIAL ONE (19:59)
[2022-11-06] MEDS ORDERED: PROPOFOL 200 MG/20 ML VIAL IVP ONE (19:59)
[2022-11-06] MEDS ORDERED: ROCURONIUM 50 MG/5 ML VIAL ONE (20:01)
[2022-11-06] MEDS ORDERED: CITRIC ACID/SODIUM CITRATE 15 ML UDC PO ONE (20:09)
--- NOTE | 2022-11-06 20:37 | ANESTHESIA ---
Pre-Anesthesia VS, & Labs - Diagnosis ectopic , right - Procedure diagnostic laparoscopy, possible salpingectomy Vital Signs: Temp Pulse Resp BP Pulse Ox O2 Flow Rate 37.2 C 94 18 109/76 99 11/06/22 19:41 11/06/22 19:41 11/06/22 19:41 11/06/22 19:41 11/06/22 19:41 Height: 5 ft 7 in Weight (kg): 70.307 kg Body Mass Index: 24.3 BMI Classification: Normal - NPO Other (ate pretzels at 1730) Last Fluid Intake: 1729 Last Food Intake: 1729 - Is Patient ?: Yes - Lab Results Current Lab Results: Laboratory Tests 11/06/22 18:02: Blood Type O POSITIVE, Antibody Screen NEGATIVE, Crossmatch IS Only See Detail 11/06/22 15:46: HCG, Quant 4806.00 11/06/22 15:46: Sodium 137, Potassium 3.9, Chloride 105, Carbon Dioxide 24, Anion Gap 8.0, BUN 10, Creatinine 0.7, Estimated GFR (MDRD) 98, Glucose 110 H, Calcium 8.9, Total Bilirubin 0.9, AST 17, ALT 14, Alkaline Phosphatase 41 L, Total Protein 7.4, Albumin 4.5, Globulin 2.9, Albumin/Globulin Ratio 1.6, Lipase 29 11/06/22 15:46: WBC 11.4 H, RBC 4.10 L, Hgb 12.5, Hct 37.6, MCV 91.7, MCH 30.5, MCHC 33.2, RDW 11.9 L, Plt Count 292, MPV 9.3, Neut # (Auto) 9.5 H, Lymph # (Auto) 1.4 L, [place] # (Auto) 0.5, Eos # (Auto) 0.0, Baso # (Auto) 0.0, Absolute Nucleated RBC 0.00, Nucleated RBC % 0.0 Fish Bones: 11/06/22 15:46 11/06/22 15:46 Home Medications and Allergies Pnv No.121/Iron/Folic Acid [ Multivitamin Tablet] 1 tab PO DAILY 01/30/21 Allergies/Adverse Reactions: Allergies Allergy/AdvReac Type Severity Reaction Status Date / Time No Known Drug Allergies Allergy Verified 11/06/22 15:16 Anes History & Medical History - Anesthetic History Anesthesia Complications: reports: No previous complications - Medical History Cardiovascular: reports: None Pulmonary: reports: None Gastrointestinal: reports: None Urinary: reports: None Neuro: reports: None Musculoskeletal: reports: None Endocrine/Autoimmune: reports: None Blood Disorders: reports: None Skin: reports: None Smoking Status: Never smoker Psychosocial: reports: No issues indicated History of Cancer?: No Other Past Medical History: R ovarian mass - Surgical History Eyes Ears Nose Throat (EENT): reports: Tonsil/Adenoidectomy, Other (tympanoplasty) Exam General: Alert, Oriented x3, Cooperative, No acute distress Dental: WNL Mouth Openin Fingerbreadth Neck Mobility: Normal Mallampati classification: II Thyromental Distance: 4-6 cm Mental/Cognitive Status: Alert/Oriented X3, Normal for patient Plan Anesthesia Type: General Consent for Procedure(s) Verified and Reviewed: Yes Code Status: Attempt Resuscitation ASA classification: 2-Mild systemic disease Is this case an emergency?: Yes
[2022-11-06] MEDS ORDERED: NALOXONE 0.4 MG/ML VIAL IVP PRN (20:43)
[2022-11-06] MEDS ORDERED: MORPHINE 2 MG/ML CARPUJECT IVP PRN (20:43)
[2022-11-06] MEDS ORDERED: fentaNYL 100 MCG/2 ML VIAL IVP PRN (20:43)
[2022-11-06] MEDS ORDERED: ONDANSETRON 4 MG/2 ML VIAL IVP PRN (20:43)
[2022-11-06] MEDS ORDERED: ATROPINE ABBOJECT 1 MG/10 ML SYRINGE IVP PRN (20:43)
[2022-11-06] MEDS ORDERED: HYDROmorphone 0.5 MG/0.5 ML SYRINGE IVP PRN (20:43)
[2022-11-06] MEDS ORDERED: DEXAMETHASONE 4 MG/ML VIAL ONE (20:47)
[2022-11-06] MEDS ORDERED: ceFAZolin 1 GM VIAL ONE (20:47)
[2022-11-06] MEDS ORDERED: ONDANSETRON 4 MG/2 ML VIAL ONE (20:47)
[2022-11-06] MEDS ORDERED: BUPIVACAINE 0.5% PF 30 ML VIAL INFIL ONE ×3 (20:53)
[2022-11-06] MEDS ORDERED: LIDOCAINE 2%-EPI 1:100000 20 ML MDV SUBQ ONE ×3 (20:54)
[2022-11-06] MEDS ORDERED: LACTATED RINGERS 1,000 ML IV SCH (21:00)
[2022-11-06] MEDS ORDERED: SUGAMMADEX 200 MG/2 ML VIAL IVP ONE (21:45)
[2022-11-06] MEDS ORDERED: HYDROmorphone 1 MG/ML CARPUJECT ONE (22:02)
[2022-11-06] MEDS ORDERED: ACETAMINOPHEN 1,000 MG/100 ML 1,000 MG/100 ML BAG IV ONE (22:13)
[2022-11-06] MEDS ORDERED: LACTATED RINGERS 500 ML IV ONE (22:39)
--- NOTE | 2022-11-06 22:44 | OPERATIVE REPORT ---
Operative Report - General Planned Procedure: Operative laparoscopy, removal ectopic Pre-Op Diagnosis: Ruptured right adnexal ectopic Procedure Performed: Laparoscopic right salpingectomy Post Op Diagnosis: Ruptured right tubal ectopic - Procedure Note Primary Surgeon: Jaye Snyder DO Secondary Surgeon: Vikash Wesley MD and Ronit DALE; assistance required for safe completion Anesthesia Provider: Kaya Cortez CRNA Anesthesia Technique: General ET tube Pathology: Right fallopian tube with ectopic Estimated Blood Loss (mL): 40 (Hemoperitoneum 1000cc) Urine Output (mL): 300 Indications: Pelvic pain, ruptured right adnexal ectopic , hemoperitoneum Findings: Large amount of hemoperitoneum, 5cm right mass adhered to posterior pelvis. Norm al ovaries bilaterally. Normal appearing uterus. Normal left oviduct. Complications: None - Other Other Information/Narrative: Patient taken to OR where GETA obtained without difficulty. Placed in dorsal lithotomy position and prepped and draped in sterile fashion. [place] speculum placed in vagina and [place] uterine manipulator placed. Speculum removed. Attention then turned to abdomen where 5mm vertical skin incision made in umbilical fold. Veress needle carefully introduced into peritoneal cavity. Intraperitoneal placement confirmed with drop test and drop in intraabdominal pressure with CO2 gas insufflation. Trocar and sleeve advanced without difficulty into abdomen where intraabdominal placement confirmed with laparos cope. Two additional 5mm incisions made in pelvis bilaterally and trocars introduced under direct visualization. 10mm trocar placed left side initially as well. 2% lidocaine with epinephrine injection prior to skin incisions x4. Aforementioned findings noted. Right fallopian tube mass with ectopic noted to be adhered to posterior peritoneum wall, not easily dissected. CHITO Watkins initially assisting. Called to assist with dissection of mass from posterior peritoneum. Mass was grasped and was able to be from peritoneum posterior to uterus. LigaSure device used for transection along right mesosalpinx up to uterine cornu. Endocatch bag placed and mass removed through 10mm incision. Hemostasis at all dissection sites. Pelvis was copiously irrigated and suctioned. Srikanth Rod used to close 10mm incision with 0-vicryl. Trocars removed under direct visualization. Pneumoperitoneum released. Umbilical trocar removed. Incisions x4 were closed with 4-0 monocryl and dermabond. Hulka manipulator and Viveros catheter removed. Sponge, lap, needle, and instrument counts were correct x2. Patient taken to PACU in stable condition.
[2022-11-06] MEDS ORDERED: ACETAMINOPHEN 500 MG TABLET PO SCH (23:00)
[2022-11-06] MEDS: KETOROLAC 30 MG/ML VIAL IVP SCH (23:07)
[2022-11-06] MEDS ORDERED: KETOROLAC 15 MG/ML VIAL ONE (23:07)
[2022-11-07] MEDS: traMADol 50 MG TABLET PO SCH ×2 (00:12→06:01)
[2022-11-07] MEDS: KETOROLAC 30 MG/ML VIAL IVP SCH (04:54)
[2022-11-07 07:33] LABS: BASOPHILS % (AUTO) 0.1 %; HCT - HEMATOCRIT 34.4 % (37.0-47.0); HGB - HEMOGLOBIN 11.6 g/dL (12.0-16.0); LYMPHOCYTES # (AUTO) 1.2 10^3/uL (1.5-3.5); LYMPHOCYTES % (AUTO) 15.2 %; MEAN CORPUSCULAR HGB CONC 33.7 g/dL (32.0-36.0); MEAN PLATELET VOLUME 9.7 fL (7.9-10.8); MONOCYTES # (AUTO) 0.5 10^3/uL (0.0-1.0); MONOCYTES % (AUTO) 5.9 %; NEUTROPHILS # (AUTO) 6.3 10^3/uL (1.5-6.6); NEUTROPHILS % (AUTO) 78.4 %; PLT - PLATELET COUNT 261 10^3/uL (130-450); RED BLOOD COUNT 3.74 10^6/uL (4.20-5.40); RED CELL DISTRIBUTION WIDTH 11.9 % (12.0-15.0); WHITE BLOOD COUNT 8.1 x10^3/uL (4.8-10.8)
[2022-11-07 09:10] VITALS: BP 105/59
--- NOTE | 2022-11-07 13:44 | ANESTHESIA POST OP EVALUATION ---
Anesthesia Post Eval - Post Anesthesia Eval Vitals: Last Vital Signs Temp 36.7 C 11/07/22 09:09 Pulse 84 11/07/22 09:09 Resp 16 11/07/22 09:09 BP 105/59 L 11/07/22 09:09 Pulse Ox 100 11/07/22 09:09 O2 Flow Rate CV Function Including HR & BP: Stable Pain Control: Satisfactory Nausea & Vomiting: Negative Mental Status: Baseline Respiratory Status: Airway Patent Hydration Status: Satisfactory Anesthesia Complications: None
== END 2022-11-07 09:40 | disposition home or self-care (01) ==
LOC: ED 14:36 → SDS 19:30 → FBP 23:28 → SDS 11-07 09:40
PROVIDERS: ATTEND Obstetrics & Gynecology
PROC: 0UT54ZZ Resection of Right Fallopian Tube, Percutaneous Endoscopic Approach (ICD-10-PCS; 2022-11-06)
PROC: 10T24ZZ Resection of Products of Conception, Ectopic, Percutaneous Endoscopic Approach (ICD-10-PCS; principal; 2022-11-06 20:15)
DX: O00.101 Right tubal pregnancy without intrauterine pregnancy (principal); Z20.822 Contact with and (suspected) exposure to COVID-19; K66.1 Hemoperitoneum
CPT/HCPCS: 36415; 59151; 76801; 76817; 80053; 81001; 81025; 83690; 84702; 85025; 86850; 86900; 86901; 86920; 87635; 99284; 99285; A9270; J0131; J0330; J1170; J7120; 81003; 85610; 87086

== ENCOUNTER 2022-11-13 11:20 | Outpatient (CLI) | payer OTHER | END 2022-11-13 11:21 | disposition home or self-care (01) | LOC: LAB 11:20 | PROVIDERS: ATTEND Obstetrics & Gynecology | DX: O00.101 Right tubal pregnancy without intrauterine pregnancy (principal) | CPT/HCPCS: 36415; 84702 ==

== ENCOUNTER 2022-12-15 15:50 | Outpatient (CLI) | payer OTHER | END 2022-12-15 15:51 | disposition home or self-care (01) | LOC: LAB 15:50 | PROVIDERS: ATTEND Obstetrics & Gynecology | DX: O00.101 Right tubal pregnancy without intrauterine pregnancy (principal) | CPT/HCPCS: 36415; 84702 ==

== ENCOUNTER 2023-07-26 09:10 | Outpatient (CLI) | payer OTHER | END 2023-07-26 09:11 | disposition home or self-care (01) | LOC: LAB 09:10 | PROVIDERS: ATTEND Nurse Practitioner | DX: Z32.01 Encounter for pregnancy test, result positive (principal) | CPT/HCPCS: 36415; 84702 ==

== ENCOUNTER 2023-07-30 09:13 | Outpatient (CLI) | payer OTHER | END 2023-07-30 09:14 | disposition home or self-care (01) | LOC: LAB 09:13 | PROVIDERS: ATTEND Nurse Practitioner | DX: Z32.01 Encounter for pregnancy test, result positive (principal); Z87.59 Personal history of other complications of pregnancy, childbirth and the puerperium | CPT/HCPCS: 36415; 84702 ==

== ENCOUNTER 2023-08-01 12:47 | Outpatient (CLI) | payer OTHER | END 2023-08-01 12:48 | disposition home or self-care (01) | LOC: DI 12:47 | PROVIDERS: ATTEND Nurse Practitioner | DX: Z53.9 Procedure and treatment not carried out, unspecified reason (principal) ==

== ENCOUNTER 2023-08-01 12:48 | Outpatient (CLI) | payer OTHER ==
--- NOTE | 2023-08-03 18:41 | Ultrasound Report ---
PROCEDURE: OB First Trimester w/TV INDICATIONS: POSITIVE TEST OUTSIDE/PRIOR DATING DATA: Last menstrual period (LMP): . LMP-based estimated date of delivery (ZAHIRA): 04/01/2024. First dating scan (date and location): 08/01/2023. Estimated date of delivery (ZAHIRA) from first dating scan: Not calculated. TECHNIQUE: Real-time scanning was performed of the fetus and maternal pelvic organs, with image documentation. Endovaginal scanning was also performed to better visualize the fetus and maternal ovaries. COMPARISON: None. FINDINGS: Intrauterine gestational sac present. Mean sac diameter is 0.55 cm, 5 weeks 2 days Embryo: Not seen Heart rate: Not seen bpm. Other: No perigestational fluid collection. Measurement variability in dating: +/- 4 weeks by LMP, +/- 7 days by mean sac diameter (use before 6 weeks gestation if crown-rump length not able to be measured), +/- 5 days by crown-rump length (6-12 weeks gestation). Maternal organs: Ovaries appear within normal limits. There is a corpus luteum of the right ovary me asuring 2.2 x 2.3 x 1.6 cm IMPRESSION: Findings may potentially represent a very early intrauterine measuring 5 weeks 2 days by me an sac diameter measurement. There is no crown-rump length or heart rate noted. Comment: Recommend serial beta hCGs and consideration of possible ultrasound in 2 weeks. Reviewed by: Hang Tejada MD on 08/03/2023 6:40 PM PDT Approved by: Hang Tejada MD on 08/03/2023 6:40 PM PDT Station ID: [id number]
== END 2023-08-01 12:49 | disposition home or self-care (01) ==
LOC: DI 12:48
PROVIDERS: ATTEND Nurse Practitioner
DX: Z32.01 Encounter for pregnancy test, result positive (principal); Z87.59 Personal history of other complications of pregnancy, childbirth and the puerperium

== ENCOUNTER 2023-08-03 08:34 | Outpatient (CLI) | payer OTHER | END 2023-08-03 08:35 | disposition home or self-care (01) | LOC: LAB 08:34 | PROVIDERS: ATTEND Nurse Practitioner | DX: Z32.01 Encounter for pregnancy test, result positive (principal); Z87.59 Personal history of other complications of pregnancy, childbirth and the puerperium | CPT/HCPCS: 36415; 84702 ==

== ENCOUNTER 2023-08-17 09:11 | Outpatient (CLI) | payer OTHER ==
[2023-08-17 09:33] LABS: BASOPHILS % (AUTO) 0.3 %; EOSINOPHILS # (AUTO) 0.1 10^3/uL (0.0-0.7); EOSINOPHILS % (AUTO) 1.6 %; HCT - HEMATOCRIT 39.9 % (37.0-47.0); HGB - HEMOGLOBIN 13.6 g/dL (12.0-16.0); LYMPHOCYTES # (AUTO) 1.7 10^3/uL (1.5-3.5); LYMPHOCYTES % (AUTO) 29.7 %; MEAN CORPUSCULAR HEMOGLOBIN 31.2 pg (27.0-31.0); MEAN CORPUSCULAR HGB CONC 34.1 g/dL (32.0-36.0); MEAN CORPUSCULAR VOLUME 91.5 fL (81.0-99.0); MEAN PLATELET VOLUME 9.8 fL (7.9-10.8); MONOCYTES # (AUTO) 0.4 10^3/uL (0.0-1.0); MONOCYTES % (AUTO) 7.1 %; NEUTROPHILS # (AUTO) 3.5 10^3/uL (1.5-6.6); NEUTROPHILS % (AUTO) 61.1 %; PLT - PLATELET COUNT 220 10^3/uL (130-450); RED BLOOD COUNT 4.36 10^6/uL (4.20-5.40); WHITE BLOOD COUNT 5.8 x10^3/uL (4.8-10.8)
[2023-08-18 01:07] LABS: HBsAG SCREEN Negative (Negative)
[2023-08-18 04:09] LABS: RPR Non Reactive (Non Reactive)
[2023-08-18 05:13] LABS: HCV AB Non Reactive (Non Reactive); HIV SCREEN 4TH GENERATION Non Reactive (Non Reactive)
[2023-08-18 09:10] LABS: VARICELLA-ZOSTER AB IGG 1278 index (Immune >165)
== END 2023-08-17 09:12 | disposition home or self-care (01) ==
LOC: LAB 09:11
PROVIDERS: ATTEND Nurse Practitioner
DX: Z34.90 Encounter for supervision of normal pregnancy, unspecified, unspecified trimester (principal); Z87.59 Personal history of other complications of pregnancy, childbirth and the puerperium
CPT/HCPCS: 36415; 84702; 85025; 86592; 86762; 86787; 86803; 86850; 86900; 86901; 87340; 87389

== ENCOUNTER 2023-09-01 08:00 | Outpatient (CLI) | payer OTHER ==
[2023-09-01 20:14] LABS: BACTERIAL VAGINOSIS DNA NEGATIVE (NEGATIVE); CANDIDA GLABRATA DNA NEGATIVE (NEGATIVE); CANDIDA GROUP DNA NEGATIVE (NEGATIVE); CANDIDA KRUSEI DNA NEGATIVE (NEGATIVE); TRICHOMONAS VAGINALIS DNA NEGATIVE (NEGATIVE)
[2023-09-01 21:25] LABS: CHLAMYDIA TRACHOMATIS DNA NEGATIVE (NEGATIVE); NEISSERIA GONORRHOEAE DNA NEGATIVE (NEGATIVE)
== END 2023-09-01 23:59 | disposition home or self-care (01) ==
LOC: LAB.WC 08:00
PROVIDERS: ATTEND Obstetrics & Gynecology
DX: N89.8 Other specified noninflammatory disorders of vagina (principal); Z11.3 Encounter for screening for infections with a predominantly sexual mode of transmission
CPT/HCPCS: 81514; 87491; 87591; 87661

== ENCOUNTER 2023-09-02 08:59 | Outpatient (CLI) | payer OTHER ==
--- NOTE | 2023-09-02 14:17 | Ultrasound Report ---
PROCEDURE: OB First Trimester w/TV INDICATIONS: POSITIVE TEST OUTSIDE/PRIOR DATING DATA: Last menstrual period (LMP): 06/26/2023. LMP-based estimated date of delivery (ZAHIRA): 04/01/2024. First dating scan (date and location): 08/01/2023. Estimated date of delivery (ZAHIRA) from first dating scan: 04/01/2024. TECHNIQUE: Real-time scanning was performed of the fetus and maternal pelvic organs, with image documentation. Endovaginal scanning was also performed to better visualize the fetus and maternal ovaries. COMPARISON: Ultrasound 08/01/2023 FINDINGS: Intrauterine gestational sac present. Embryo: Mean gestational sac diameter measures 4.4 cm, consistent with 10 weeks and 0 days. [place]-ru mp length is 3.0 cm, consistent with 9 weeks and 6 days. Heart rate: 166 bpm. Other: No perigestational fluid collection. Measurement variability in dating: +/- 4 weeks by LMP, +/- 7 days by mean sac diameter (use before 6 weeks gestation if crown-rump length not able to be measured), +/- 5 days by crown-rump length (6-12 weeks gestation). Maternal organs: Ovaries appear within normal limits. Right corpus luteal cyst measuring 1.9 cm. IMPRESSION: Single live intrauterine dating 9 weeks and 6 days. Reviewed by: Jass Mauricio MD on 09/02/2023 2:16 PM PDT Approved by: Jass Mauricio MD on 09/02/2023 2:16 PM PDT Station ID: [id number]
== END 2023-09-02 09:00 | disposition home or self-care (01) ==
LOC: DI 08:59
PROVIDERS: ATTEND Nurse Practitioner
DX: Z34.01 Encounter for supervision of normal first pregnancy, first trimester (principal); Z87.59 Personal history of other complications of pregnancy, childbirth and the puerperium